=== PATIENT | female | born 1990 | race Caucasian/White ===

== ENCOUNTER 2017-09-18 11:27 | Emergency (ER) | payer BC, SELFPAY ==
[~2017-09-18 11:27] MED LIST: Iopamidol 370 76% 100 ML VIAL ONE
[2017-09-18] MEDS ORDERED: Ondansetron HCl/PF 4 MG/2 ML Vial ONE (11:56)
[2017-09-18] MEDS ORDERED: Pantoprazole 40 MG VIAL ONE (11:57)
[2017-09-18 12:16] LABS: #Lymphocytes 1.2 thou/uL (1.20-3.40); #Monocytes 0.5 thou/uL (0.11-0.59); #Neutrophils 11.4 thou/uL (1.40-6.50); %Basophils 0.3 % (0.0-1.0); %Eosinophils 0.2 % (0.0-10.0); %Lymphocytes 8.7 % (21.0-51.0); %Monocytes 3.9 % (0.0-10.0); %Neutrophils 86.8 % (42.0-75.0); Mean Corpuscular HGB CONC 36.3 g/dL (32.0-36.0); Mean Corpuscular Hemoglobin 32.4 pg (27.0-31.0); Mean Corpuscular Volume 89.3 fl (81.0-99.0); Mean Platelet Volume 9.1 fL (7.4-10.4); Platelet Count 260 thou/uL (130-400); RBC Distribution Width 10.8 % (11.5-14.5); Red Blood Cell (RBC) Count 4.94 mill/uL (4.20-5.40); White Blood Cell (WBC) Count 13.2 thou/uL (4.8-10.8)
[2017-09-18 12:18] LABS: Bilirubin Small (Negative); Blood, Urine Negative (Negative); Clarity Slightly Cloudy (Clear); Glucose, Urine (Dipstick) Negative (Negative); Leukocyte Negative (Negative); Nitrite Negative (Negative); Protein, Urine (Dipstick) 30 mg/dL (Neg-Trace); Urobilinogen 0.2 mg/dL (0.2-1.0); pH, Urine 5.5 (5.0-9.0)
[2017-09-18 12:19] LABS: Pregnancy Test - Urine (BHCG) Negative (Negative); Pregu Control Background? CLEAR/WHITE (CLR/WHITE); Pregu Control Bar Appear? YES (CONTROL BAR); Specific Gravity 1.028 (1.002-1.036)
[2017-09-18 12:20] LABS: Specific Gravity, Urine 1.028 (1.005-1.030)
[2017-09-18 12:22] LABS: ALT (SGPT) 19 U/L (8-55); AST (SGOT) 19 U/L (5-34); Albumin 4.6 g/dL (3.5-5.0); Alkaline Phosphatase 57 U/L (40-150); Anion Gap 16 mmol/L (10-20); BUN (Urea Nitrogen) 12 mg/dL (7.0-18.7); Bilirubin, Total 0.4 mg/dL (0.2-1.2); Calc. Creatinine Clearance 0 mL/min (70-130); Carbon Dioxide 21 mmol/L (22-29); Chloride 106 mmol/L (98-107); Estimated GFR-MDRD 85; Globulin 2.7 g/dL (2.4-3.5); Glucose 144 mg/dL (70-105); Lipase 47 U/L (8-78); Potassium 3.8 mmol/L (3.5-5.1); Protein, Total 7.3 g/dL (6.0-8.3); Sodium 139 mmol/L (136-145)
[2017-09-18 12:26] LABS: Bacteria/HPF 1+ HPF (None Seen); RBC/HPF None Seen HPF (0-3); Squamous Epithelial 0-3 HPF (0-3); WBC/HPF 0-3 HPF (0-3)
[2017-09-18 12:27] LABS: Crystals/HPF 2+ AMORPH URATES HPF (Negative)
[2017-09-18] MEDS ORDERED: Morphine 4 MG/ML Carpuject ONE ×2 (13:26→14:47)
--- NOTE | 2017-09-18 15:19 | CT ---
CT OF THE ABDOMEN AND PELVIS WITH IV CONTRAST: INDICATION: History of recurrent nausea and vomiting with elevated white count. The patient is predominantly hav ing mid upper to left lower quadrant abdominal pain. FINDINGS: There is a 2.5 cm peripherally enhancing hypodensity within the left adnexa with mild free fluid whic h may reflect an involuting cyst. The rectum and perirectal soft tissues appear within normal limits. Colon is largely decompressed. There is a normal appendix in the right lower quadrant of the abdomen. The small bowel is of normal caliber. There is suspected focal fatty infiltration near the falciform ligament. Pancreas, adrenal glands, and spleen appear within normal limits. The kidneys appear within normal l imits. Lung bases are clear. No definite acute osseous abnormality is evident. IMPRESSION: 1. Suspected involuting cyst involving the left adnexa measuring up to 2.5 cm with mild free fluid i n the pelvis. If clinically indicated, further evaluation with pelvic ultrasound may be helpful for improved characterization. 2. Normal appendix in the right lower quadrant of the abdomen. 3. Slightly decompressed colon. 4. Suspected fatty infiltration near the falciform ligament. POS: [facility]
== END 2017-09-18 15:43 | disposition home or self-care (01) ==
LOC: BURERS 11:27
DX: N83.202 Unspecified ovarian cyst, left side (principal); R11.2 Nausea with vomiting, unspecified; Z87.891 Personal history of nicotine dependence
CPT/HCPCS: 74177; 80053; 81003; 81015; 81025; 83690; 85025; 96361; 96374; 96375; 96376; A4216; C9113; J2270; J2405

== ENCOUNTER 2019-01-14 04:32 | Emergency (ER) | payer SELFPAY ==
[2019-01-14] MEDS ORDERED: Promethazine HCl 25 MG/ML VIAL ONE (05:00)
[2019-01-14] MEDS ORDERED: Ketorolac Tromethamine 30 MG/ML VIAL ONE (05:00)
[2019-01-14] MEDS ORDERED: Lidocaine Viscous Sol 2% 15 ml UD Cup ONE (05:01)
[2019-01-14] MEDS ORDERED: Mag-Al Plus 1200 MG/1200 MG/120 MG/30 ML UDCUP ONE (05:01)
[2019-01-14 05:05] LABS: Bilirubin Negative (Negative); Blood, Urine Negative (Negative); Clarity Clear (Clear); Glucose, Urine (Dipstick) Negative (Negative); Leukocyte Negative (Negative); Nitrite Negative (Negative); Protein, Urine (Dipstick) Negative (Neg-Trace); Urobilinogen 0.2 mg/dL (Less than 2)
[2019-01-14 05:09] LABS: Pregnancy Test - Urine (BHCG) Negative (Negative); Pregu Control Background? CLEAR/WHITE (CLR/WHITE); Pregu Control Bar Appear? YES (CONTROL BAR); Specific Gravity 1.025 (1.002-1.036)
[2019-01-14 05:14] LABS: #Basophils 0.1 thou/uL (0.0-0.2); #Eosinphils 0.1 thou/uL (0.0-0.7); #Monocytes 0.5 thou/uL (0.11-0.59); #Neutrophils 5.6 thou/uL (1.40-6.50); %Basophils 0.7 % (0.0-1.0); %Eosinophils 1.1 % (0.0-10.0); %Lymphocytes 24.2 % (21.0-51.0); %Monocytes 5.9 % (0.0-10.0); %Neutrophils 68.1 % (42.0-75.0); Mean Corpuscular HGB CONC 34.7 g/dL (32.0-36.0); Mean Corpuscular Hemoglobin 32.5 pg (27.0-31.0); Mean Corpuscular Volume 93.8 fL (78.0-98.0); Mean Platelet Volume 8.9 fL (7.4-10.4); Platelet Count 246 thou/uL (130-400); RBC Distribution Width 10.9 % (11.5-14.5); Red Blood Cell (RBC) Count 3.98 mill/uL (4.20-5.40); White Blood Cell (WBC) Count 8.3 thou/uL (4.8-10.8)
[2019-01-14 05:26] LABS: ALT (SGPT) 9 U/L (8-55); AST (SGOT) 14 U/L (5-34); Albumin 3.7 g/dL (3.5-5.0); Alkaline Phosphatase 53 U/L (40-150); Anion Gap 13 mmol/L (10-20); BUN (Urea Nitrogen) 16 mg/dL (7.0-18.7); Bilirubin, Total 0.3 mg/dL (0.2-1.2); Calc. Creatinine Clearance 0 mL/min (70-130); Calcium 9.3 mg/dL (7.8-10.44); Carbon Dioxide 22 mmol/L (22-29); Chloride 109 mmol/L (98-107); Estimated GFR-MDRD Greater than 90; Globulin 2.2 g/dL (2.4-3.5); Glucose 106 mg/dL (70-105); Lipase 62 U/L (8-78); Potassium 3.6 mmol/L (3.5-5.1); Protein, Total 5.9 g/dL (6.0-8.3); Sodium 140 mmol/L (136-145)
== END 2019-01-14 05:30 | disposition home or self-care (01) ==
LOC: BURERS 04:32
DX: R10.13 Epigastric pain (principal); Z87.891 Personal history of nicotine dependence
CPT/HCPCS: 80053; 81003; 81025; 83690; 85025; 96365; 96375; J1885; J2550

== ENCOUNTER 2022-05-31 12:46 | Emergency (ER) | payer OTHER ==
[2022-05-31] MEDS ORDERED: traMADol HCl 50 MG TAB ONE (13:11)
[2022-05-31] MEDS ORDERED: Ibuprofen 200 MG TAB ONE (13:11)
== END 2022-05-31 13:45 | disposition home or self-care (01) ==
LOC: BURERS 12:46
DX: M94.0 Chondrocostal junction syndrome [Tietze] (principal)

== ENCOUNTER 2022-06-06 12:04 | Outpatient (CLI) | payer OTHER | END 2022-06-06 12:05 | disposition home or self-care (01) | LOC: BURRAD 12:04 | PROVIDERS: ATTEND Family Medicine | DX: R05.3 Chronic cough (principal) | CPT/HCPCS: 71046 ==

== ENCOUNTER 2022-06-09 11:43 | Outpatient (CLI) | payer OTHER | END 2022-06-09 11:44 | disposition home or self-care (01) | LOC: BURRAD 11:43 | PROVIDERS: ATTEND Physician Assistant | DX: S22.31XG Fracture of one rib, right side, subsequent encounter for fracture with delayed healing (principal); Z87.81 Personal history of (healed) traumatic fracture ==

== ENCOUNTER 2023-01-15 11:24 | Emergency (ER) | payer OTHER ==
[2023-01-15] MEDS ORDERED: Morphine 10 MG/ML VIAL ONE (12:29)
[2023-01-15] MEDS ORDERED: Ondansetron PF 4 MG/2 ML Vial ONE (12:29)
[2023-01-15 13:29] LABS: Hematocrit 40.5 % (36.0-47.0); Hemoglobin 13.5 g/dL (12.0-16.0); Mean Corpuscular Volume 94.7 fl (78.0-98.0); Red Blood Cell (RBC) Count 4.28 mill/uL (4.20-5.40); White Blood Cell (WBC) Count 6.9 10x3/uL (4.8-10.8)
[2023-01-15 13:30] LABS: #Monocytes 0.3 thou/uL (0.11-0.59); #Neutrophils 5.5 thou/uL (1.40-6.50); %Basophils 0.5 % (0.0-1.0); %Eosinophils 0.5 % (0.0-10.0); %Lymphocytes 15.1 % (21.0-51.0); %Monocytes 4.1 % (0.0-10.0); %Neutrophils 79.8 % (42.0-75.0); Manual Diff?? YES; Mean Corpuscular HGB CONC 33.3 g/dL (32.0-36.0); Mean Corpuscular Hemoglobin 31.6 pg (27.0-31.0); Mean Platelet Volume 7.5 fL (7.4-10.4); Platelet Count 244 10x3/uL (130-400); RBC Distribution Width 10.6 % (11.5-14.5)
[2023-01-15 13:31] LABS: MDiff Complete? YES
[2023-01-15 13:34] LABS: INR-International Normal Ratio 0.9; Prothrombin Time 12.4 sec (12.0-14.7)
[2023-01-15 13:44] LABS: Carbon Dioxide 22 mmol/L (22-29); Chloride 104 mmol/L (98-107); Potassium 3.9 mmol/L (3.5-5.1); Sodium 138 mmol/L (136-145)
[2023-01-15 13:45] LABS: Anion Gap 16 mmol/L (10-20); BUN (Urea Nitrogen) 12 mg/dL (7.0-18.7); Calc. Creatinine Clearance 0 mL/min (70-130); Estimated GFR 115
[2023-01-15 13:46] LABS: Calcium 9.4 mg/dL (7.6-10.4); Glucose 103 mg/dL (70-105)
[2023-01-15] MEDS ORDERED: Morphine 4 MG/ML VIAL ONE (14:18)
== END 2023-01-15 14:28 | disposition home or self-care (01) ==
LOC: BURERS 11:24
DX: S16.1XXA Strain of muscle, fascia and tendon at neck level, initial encounter (principal); M62.838 Other muscle spasm; M06.9 Rheumatoid arthritis, unspecified; M79.7 Fibromyalgia; Z79.899 Other long term (current) drug therapy; X50.0XXA Overexertion from strenuous movement or load, initial encounter; Y93.F2 Activity, caregiving, lifting
CPT/HCPCS: 85025; 85610; 96374; 96375; 96376; J2270; J2405